=== PATIENT | female | born 1960 | race Caucasian/White ===

== ENCOUNTER → 2016-04-15 | Outpatient (CLI) | payer OTHER ==
[~2016-04-15] MED LIST: ARIMIDEX1 MG PO; DIABETA2.5 MG PO; ECOTRIN81 MG PO; INVOKANA PO; METFORMIN500 MG PO; NKHM; ONGLYZA5 MG PO; PEPCID40 MG PO; RANITIDINE150 MG PO; STEROID; VICODIN 5/500 505 MG PO
== END | disposition home or self-care (01) ==
LOC: MAMMO 12:46
DX: Z85.3 Personal history of malignant neoplasm of breast (principal)

== ENCOUNTER → 2017-06-15 | Outpatient (CLI) | payer OTHER | END | disposition home or self-care (01) | LOC: MAMMO 13:00 | DX: R92.8 Other abnormal and inconclusive findings on diagnostic imaging of breast (principal); Z85.3 Personal history of malignant neoplasm of breast ==

== ENCOUNTER → 2017-07-21 | Day surgery (SDC) | payer OTHER ==
[~2017-07-21] VITALS: Ht 154.9 cm; Wt 95.3 kg
[~2017-07-21] MED LIST changes: +ATORVASTATIN CA10 M1 PO; +BUSPIRONE HCL10 MG PO; +GLIPIZIDE10 M2 PO; +LISINOPRIL5 MG PO; +TANZEUM50 MG/0.5 SC; +ZOLOFT50 MG PO
--- NOTE | ~2017-07-21 | O ---
[place], [place] OPERATIVE NOTE NAME: NELLIE CANO UNIT #: [id number] ROOM: DOCTOR: ABUNDIO POSEY MD BIRTHDATE: [birth year] DOS: 07/21/2017 GASTROENDOSCOPIC REPORT HISTORY OF PRESENT ILLNESS: This is a 56-year-old patient who presented with chief complaint of concern about colonic screening. She has a history of bilateral mastectomy for breast CA status post chemoradiation 5 years ago. ALLERGIES: No known medication. FAMILY HISTORY: Father with colonic carcinoma. PAST SURGICAL HISTORY: Tonsillectomy, bilateral mastectomy, and tubal ligation. PAST MEDICAL HISTORY: History of breast CA. PROCEDURE: Today's procedure part of investigation is colonoscopy. PREMEDICATION: Propofol. SCOPE: Olympus folding colonoscope 10L video. REPORT: After putting the patient in left lateral position and application of lubricant to the scope, the scope was introduced. Thereafter, under direct visualization, advanced through the length of colon without difficulty. There is some liquid stool throughout the length of colon. Base of cecum explored. Photographic series obtained. Air was suctioned out gradually. Scope withdrawn, tolerated the procedure well. IMPRESSION: Normal colonoscopic examination. PLAN AND DISCUSSION: High fiber fruit diet. ACTIVITY: Ad cely. FOLLOWUP: As outpatient. I have rediscussed with her that she needs to follow up with Oncology or family physician for a history of bilateral breast CA and mastectomies and she is status post chemoradiation 5 years ago. Thank you very much indeed for your kind referral. [place], [place] OPERATIVE NOTE NAME: NELLIE CANO UNIT #: [id number] ROOM: DOCTOR: ABUNDIO POSEY MD BIRTHDATE: [birth year] ABUNDIO POSEY MD CM:OPRECORD:OPERATIVE NOTE [id number] ABUNDIO POSEY MD 07/21/17 1229 interface
[2017-07-21 09:22] VITALS: BP 125/63
[2017-07-21 10:13] VITALS: BP 101/44
[2017-07-21 10:30] VITALS: BP 119/57
[2017-07-21 10:41] VITALS: BP 151/70
== END | disposition home or self-care (01) ==
LOC: SDC 07-16 10:15
DX: Z12.11 Encounter for screening for malignant neoplasm of colon (principal); Z85.3 Personal history of malignant neoplasm of breast; Z98.51 Tubal ligation status; E11.9 Type 2 diabetes mellitus without complications; K21.9 Gastro-esophageal reflux disease without esophagitis; F41.9 Anxiety disorder, unspecified; F32.9 Major depressive disorder, single episode, unspecified; Z83.3 Family history of diabetes mellitus; Z82.49 Family history of ischemic heart disease and other diseases of the circulatory system; Z87.891 Personal history of nicotine dependence; Z80.0 Family history of malignant neoplasm of digestive organs

== ENCOUNTER 2020-10-24 22:44 | Emergency (ER) | payer OTHER ==
[~2020-10-24] VITALS: Ht 165.1 cm; Wt 113.4 kg
== END 2020-10-25 00:50 | disposition home or self-care (01) ==
LOC: ED 22:44
DX: S80.02XA Contusion of left knee, initial encounter (principal); Z79.899 Other long term (current) drug therapy; Z79.82 Long term (current) use of aspirin; Z98.51 Tubal ligation status; W01.0XXA Fall on same level from slipping, tripping and stumbling without subsequent striking against object, initial encounter; Y93.89 Activity, other specified; Y92.002 Bathroom of unspecified non-institutional (private) residence as the place of occurrence of the external cause; Y99.8 Other external cause status